=== PATIENT | male | born 1970 | race Hispanic/Latino ===

== ENCOUNTER 2020-01-29 22:32 | Emergency (ER) | payer SELFPAY ==
[~2020-01-29] VITALS: Ht 167.6 cm; Wt 111.6 kg
--- NOTE | 2020-01-29 23:02 | Emergency Department Note ---
History of Present Illnes History of Present Illness Chief Complaint: Respiratory History of Present Illness This is a 49 year old male, with significant past medical history, who presents to history of progressively worsening cough, that seemed to worsen today, as well as intermittent fevers. Patient states that he last had a fever approximately 1 week ago. He states that that his cough is dry and persistent, and that he developed shortness of breath while he's coughing. He is also short of breath with minimal exertion. He has no orthopnea or paroxysmal nocturnal dyspnea. A He also has some chest discomfort with cough, but none denies chest heaviness, tightness, dizziness, or lightheadedness. He's also had loose stools for the past 2 days, with 2 episodes each day. He denies any nausea, vomiting, chest tightness, dizziness,or known sick contacts. He denies any history of asthma, and he is not a smoker. 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 Onset (how long ago): week(s) (2) Location: chest Quality: sore; persistent, dry cough Radiation: Reports non-radiation Severity: moderate Onset quality: gradual Duration (how long): week(s) (2; worsening cough over the last 2-3 days.) Timing of current episode: constant Progression: worsening Chronicity: new Context: Denies recent illness, Denies recent surgery, Denies recent travel, Denies trauma/injury, Denies new medications, Denies non-compliance w/ medications Relieving factors: none Exacerbating factors: none Associated symptoms: Reports cough, Reports fever/chills, Reports shortness of breath; Denies chest pain (chest is "sore" with coughing.), Denies headaches, Denies loss of appetite, Denies nausea/vomiting, Denies syncope Treatments prior to arrival: none Risk factors: heavy ETOH intake on the weekends; Past Medical/Family History Physician Review I have reviewed the patient's past medical and family history. Any updates have been documented here. Past Medical History Recent Fever: Yes Clinical Suspicion of Infectio: Yes New/Unexplained Change in Ment: No Past Medical History: None (side) Past Surgical History: None Social History Smoking Cessation: Never Smoker Alcohol Use: Social (patient drinks at least one case of beer every weekend) Any Illegal Drug Use: No TB Exposure/Symptoms: No Physically hurt or threatened: No Family History Family history of heart diseas: No Other Last Tetanus: Unknown Any Pre-Existing Lines (PICC,: No Is patient up to date on immun: No Last Flu: No Last Pneumovax: No Review of Systems Review of Systems Constitutional: Reports malaise; Denies chills, Denies fever EENTM: Reports no symptoms Cardiovascular: Denies chest pain, Denies palpitations, Denies syncope Respiratory: Reports chest congestion, Reports cough; Denies hemoptysis, Denies excessive phlegm production Gastrointestinal: Reports diarrhea (several loose stools over the past 2 days. NO blood or mucous); Denies abdominal pain Genitourinary: Reports no symptoms Musculoskeletal: Denies back pain, Denies muscle pain, Denies neck pain Integumentary: Denies rash Neurological: Reports no symptoms Psychological: Reports no symptoms Endocrine: Reports no symptoms Hematological/Lymphatic: Reports no symptoms Review of other systems: All other systems negative Physical Exam Related Data Allergies: Coded Allergies: No Known Drug Allergies (Verified Allergy, Unknown, 01/29/20) Vital signs reviewed: Yes Physical Exam CONSTITUTIONAL Constitutional: Present well-developed, Present well-nourished, Present ill appearing (in no acute distress) HENT HENT: Present normocephalic, Present atraumatic, Present oropharynx clear/moist, Present nose normal HENT L/R: Present left TM normal, Present right TM normal, Present left ext ear normal, Present right ext ear normal EYES Eyes: Reports PERRL, Reports conjunctivae normal; Denies left eye discharge, Denies right eye discharge NECK Neck: Present ROM normal; Absent cervical adenopathy PULMONARY Pulmonary: Present effort normal, Present other (diminished breath sounds bilaterally with intermittent crackles; dry cough with each expiration); Absent respiratory distress CARDIOVASCULAR Cardiovascular: Present regular rhythm, Present heart sounds normal, Present capillary refill normal, Present normal rate GASTROINTESTINAL Abdominal: Present soft, Present nontender, Present bowel sounds normal; Absent tender, Absent rebound GENITOURINARY Genitourinary: Present exam deferred SKIN Skin: Present warm, Present dry; Absent rash MUSCULOSKELETAL Musculoskeletal: Present ROM normal NEUROLOGICAL Neurological: Present alert, Present oriented x 3, Present no gross motor or sensory deficits PSYCHOLOGICAL Psychological: Present mood/affect normal, Present judgement normal Results Laboratory Laboratory (See copies of labs): CBC - normal [place] - nl except for CL = 92, Mg = 2.6; Lactic Acid = 1.41; Influenza A/B - Influenza A POSITIVE; Lab results reviewed: Yes Imaging Imaging results reviewed: Yes Impressions [place] [id number] Patient Name: SIDNEY CHAVARRIA MR #: [id number] : 1970 Age/Sex: 49/M Req #: [id number] Adm Physician: Ordered by: TIFFANIE ALVARADO MD Report #: [id number] Location: [facility] Room/Bed: Procedure: [id number] HOPD/CXR 2 VIEW - HOPD Exam Date: 01/29/20 Exam Time: 2358 REPORT STATUS: Signed EXAMINATION: CXR 2 VIEW - HOPD INDICATION: ^cough, hypoxia ^[id number] ^[id number] COMPARISON: None FINDINGS: TUBES and LINES: None. LUNGS: Patchy airspace disease throughout both lungs. PLEURA: No pleural effusion or pneumothorax. HEART AND MEDIASTINUM: The cardiomediastinal silhouette is unremarkable. BONES AND SOFT TISSUES: No acute osseous lesion. Soft tissues are unremarkable. UPPER ABDOMEN: No free air under the diaphragm. IMPRESSION: Patchy airspace disease throughout both lungs. Consider viral pneumonia. Signed by: Allyssa Layne MD on 01/30/2020 12:43 AM Dictated By: ALLYSSA LAYNE MD Transcribed By: CHINO on 01/30/2042 COPY TO: TIFFANIE ALVARADO MD~ Diagnostics Tests Diagnostic test(s) reviewed: Yes Assessment & Plan Medical Decision Making MDM - Discussed with patient, and by phone, that his chest x-ray reveals bilateral pneumonia, suspicious for viral pneumonia. Rest of his lab work was unremarkable other than he also tested positive for influenza A. Explained to patient and , that we are a free standing emergency room, not attached to the hospital, therefore patient will have to be transferred to a hospital for further management of his pneumonia, hypoxia and influenza. - Explain the patient's been treated with antibiotics, consisting of Rocephin and Zithromax. He is also received dexamethasone 6 mg IV to help with the inflammation in his lungs, and Lovenox 40 mg subcutaneous to try and prevent the formation of blood clots. - Patient is currently on 4 L of oxygen, with a stable O2 sat of 95%. He is not taking deep breaths, due to the fact that this provokes coughing. Patient may benefit from bronchodilators with a spacer, once he's admitted. - [facility], so we will contact the transfer center at [facility], for bed availability. Covert testing has been performed, and is pending at the time of discharge. 02:03 - transfer center contacted at [facility], to initiate the transfer. 03:02 - case discussed with Dr. Caraballo, hospitalist transportation services representative at [facility], who accepted patient in transfer. Pt is medically stable for transfer via EMS. Patient's : Beatriz Chavarria - [phone] Assessment & Plan Final Impression: (1) Pneumonia due to COVID-19 virus (2) Hypoxia (3) Influenza A (4) Acute bronchospasm Depart Disposition: TRANS TO OTHER [facility] (Transfer to [facility]) TIFFANIE ALVARADO MD Jan 29, 2020 23:02
--- NOTE | 2020-01-30 00:46 | Diagnostic Imaging Report ---
EXAMINATION: CXR 2 VIEW - HOPD INDICATION: ^cough, hypoxia ^[id number] ^[id number] COMPARISON: None FINDINGS: TUBES and LINES: None. LUNGS: Patchy airspace disease throughout both lungs. PLEURA: No pleural effusion or pneumothorax. HEART AND MEDIASTINUM: The cardiomediastinal silhouette is unremarkable. BONES AND SOFT TISSUES: No acute osseous lesion. Soft tissues are unremarkable. UPPER ABDOMEN: No free air under the diaphragm. IMPRESSION: Patchy airspace disease throughout both lungs. Consider viral pneumonia. Signed by: Demetrius Avendaño MD on 01/30/2020 12:43 AM
[2020-01-30] MEDS ORDERED: AZITHROMYCIN 500MG/NS 250 ML 250 ML IV ONE (01:00)
[2020-01-30] MEDS ORDERED: CEFTRIAXONE SOD 1 GM/NS 50 ML 50 ML IV SCH (01:00)
[2020-01-30] MEDS ORDERED: ENOXAPARIN SODIUM INJ 100 MG/ML SYR SC SCH (01:00)
[2020-01-30] MEDS ORDERED: SODIUM CHLORIDE 0.9% 500ML 500 ML IV ONE (01:45)
[2020-01-30] MEDS ORDERED: DEXAMETHASONE SOD PHOS 10 MG/1 ML VIAL ONE (02:29)
[2020-01-30] MEDS ORDERED: OSELTAMIVIR PHOSPHATE 75 MG CAP PO ONE (02:29)
[2020-01-30] MEDS ORDERED: ENOXAPARIN SODIUM INJ 100 MG/ML SYR SC ONE (02:30)
[2020-01-30] MEDS ORDERED: CEFTRIAXONE SOD 1 GM/NS 50 ML 50 ML IV ONE (02:30)
[2020-01-30] MEDS ORDERED: SODIUM CHLORIDE 0.9% 500ML 500 ML ONE (02:30)
[2020-01-30] MEDS ORDERED: AZITHROMYCIN 500MG/NS 250 ML 250 ML ONE (02:31)
--- NOTE | 2020-01-30 04:10 | NUR ---
REPORT TO [facility] PERSONEL.
--- NOTE | 2020-01-30 04:20 | NUR ---
REPORT TO VERONICA CHAUDHRY FOR RM 730 AT [facility]
[2020-01-30 04:26] VITALS: BP 114/56
[2020-01-30] MEDS ORDERED: DEXAMETHASONE SOD PHOS 10 MG/1 ML VIAL IV SCH (09:00)
[2020-01-30] MEDS ORDERED: OSELTAMIVIR PHOSPHATE 75 MG CAP PO SCH (09:00)
--- NOTE | 2020-01-30 16:21 | NUR ---
GREGOR HARVEY AT [facility] NOTIFIED OF LAB RESULTS FOR COVID [address]. [address] ARITA
== END 2020-01-30 04:26 | disposition short-term general hospital (02) ==
LOC: FSED 22:32
DX: U07.1 COVID-19 (principal); J18.9 Pneumonia, unspecified organism; J09.X2 Influenza due to identified novel influenza A virus with other respiratory manifestations; R09.02 Hypoxemia; R05 Cough; J98.01 Acute bronchospasm
CPT/HCPCS: 71046; 80048; 80076; 85025; 87040; 87400; 87635; 96365; 96372; 96374; 99284; J0456; J0696; J1100; J1650; J7040

== ENCOUNTER 2021-08-23 12:29 | Emergency (ER) | payer BC, SELFPAY ==
[~2021-08-23] VITALS: Ht 167.6 cm; Wt 104.3 kg
[2021-08-23] MEDS ORDERED: KETOROLAC TROMETHAMINE 60 MG/2 ML VIAL IM ONE (13:00)
[2021-08-23] MEDS ORDERED: KETOROLAC TROMETHAMINE 60 MG/2 ML VIAL ONE (13:08)
== END 2021-08-23 13:45 | disposition home or self-care (01) ==
LOC: FSED 12:47
DX: M25.552 Pain in left hip (principal); M25.562 Pain in left knee
CPT/HCPCS: 96372; 99282; J1885